=== PATIENT | male | born 1950 | race Caucasian/White ===

== ENCOUNTER 2020-07-05 07:18 | Day surgery (SDC) | payer MEDICARE, BC ==
--- NOTE | 2020-06-14 08:23 | HISTORY AND PHYSICAL ---
DATE OF SERVICE: 07/05/2020 COLONOSCOPY HISTORY AND PHYSICAL HISTORY OF PRESENT ILLNESS: The patient is a 69-year-old white male seen for followup of hypertension in the office on 06/06/2020. He had a past history of colon polyps and it had been over 8 years since his last colonoscopy. On obtaining records, he had one tubular adenoma removed from the proximal ascending colon with mild diverticular disease confined to the sigmoid colon. He states that he has been physically active and feels well, has noted no abdominal pain, no bright red blood per rectum or melena. He is not aware of any family history for colon cancer. PHYSICAL EXAMINATION: VITAL SIGNS: Weight was down 5 pounds from one year ago to 173.8, blood pressure 130/70. CHEST: Clear. CARDIOVASCULAR: Regular rate and rhythm without murmur, S3 or S4. NECK: Revealed no JVD, adenopathy or bruits. ABDOMEN: Soft, supple without mass, organomegaly or tenderness. Mild diastasis recti was noted. No bruits appreciated. No evidence for abdominal aortic aneurysm to palpation. EXTREMITIES: Reveal no cyanosis, clubbing or edema. SKIN: Evaluation revealed no suspicious nevi. IMPRESSION AND PLAN: 1. Hypertension, under good control. 2. Mild hyperlipidemia. LDL 157 as well as mild blood sugar elevation at 106 compatible with insulin resistance. Discussed the importance of weight loss, portion control. PSA remains low at 0.088. Remainder of his chemistry panel was normal including liver function studies. 3. The patient is set up for screening colonoscopy on 07/05. Prep instructions with Suprep kit were given and questions were answered. Job ID: [id number] DocumentID: [id number] Dictated Date: 06/06/2020 19:10:54 District Supervisor Date: 06/06/2020 19:25:41 Dictated By: ANNAMARIE CAREY MD
[~2020-07-05] VITALS: Ht 172.7 cm; Wt 76.8 kg
[2020-07-05] VITALS (11 sets, daily range): BP systolic 120–162; BP diastolic 65–98
[~2020-07-05 07:18] MED LIST: ATR20T PO; ENAL20TA PO; HYDR12.56 PO
[2020-07-05] MEDS ORDERED: D5 LR IV SOLUTION 1,000 ML IV ONE (07:19)
[2020-07-05] MEDS ORDERED: D5 LR IV SOLUTION 1,000 ML IV STA (07:50)
[2020-07-05] MEDS ORDERED: fentaNYL INJECTION 100 MCG/2 ML AMP IVP ONE (08:00)
[2020-07-05] MEDS ORDERED: MIDAZOLAM 5 MG/5 ML (VERSED) VIAL IV PRN (08:00)
[2020-07-05] MEDS ORDERED: LIDOCAINE JELLY 2% 6 ML SYRINGE MM PRN (08:00)
[2020-07-05] MEDS ORDERED: LIDOCAINE JELLY 2% 6 ML SYRINGE ONE (08:13)
[2020-07-05] MEDS ORDERED: fentaNYL INJECTION 100 MCG/2 ML AMP ONE (08:13)
[2020-07-05] MEDS ORDERED: MIDAZOLAM 5 MG/5 ML (VERSED) VIAL ONE (08:14)
--- NOTE | 2020-07-05 09:31 | Pre-Op Note & Conscious Sedat ---
Pre-Operative Progress Note H&P Reviewed The H&P was reviewed, patient examined and no changes noted. Date H&P Reviewed: Jul 05, 2020 Time H&P Reviewed: 07:55 Conscious Sedation Pre-Proced ASA Score 2 For ASA 3 and 4: Consider anesthesia and medical clearance. Also, for patients with a history of failed moderate sedation consider anesthesia. Airway Lungs Heart ASA score ASA 1: a normal healthy patient ASA 2: a patient with a mild systemic disease (mid diabetes, controlled hypertension, obesity ASA 3: a patient with a severe systemic disease that limits activity (angina, COPD, prior Myocardial infarction) ASA 4: a patient with an incapacitating disease that is a constant threat to life (CHF, renal failure) ASA 5: a moribund patient not expected to survive 24 hrs. (ruptured aneurysm) ASA 6: a declared brain- patient whose organs are being harvested. For emergent operations, add the letter E after the classification Mallampati Classification Grade 2 Sedation Plan Analgesia, Amnesia, Plan communicated to team members, Discussed options with patient/fam, Discussed risks with patient/fam The patient is an appropriate candidate to undergo the planned procedure, sedation, and anesthesia. The patient immediately re-assessed prior to indication. ANNAMARIE CAREY MD Jul 05, 2020 09:31
--- NOTE | 2020-07-05 17:14 | OPERATIVE REPORT ---
DATE OF SERVICE: COLONOSCOPY SUMMARY INDICATION FOR THE PROCEDURE: Screening colonoscopy. DESCRIPTION OF PROCEDURE: The patient was placed in the left lateral decubitus position. Prior to undergoing colonoscopy, digital rectal evaluation was performed. Anal sphincter tone was normal and the perianal reflexes intact. Prostate is anodular, nontender and unremarkable to digital inspection. The colonoscope was then inserted into the rectum and under direct visualization advanced to cecum. The cecum was identified by the identification of the ileocecal valve and the cecal strap. Photographic documentation was obtained. Careful inspection was made as the colonoscope was withdrawn. The patient tolerated the procedure well and the quality of prep was good. FINDINGS: There was no evidence for internal or external hemorrhoids and the rectum was unremarkable. A moderate number of small to medium size sigmoid diverticulum were present with haustral hypertrophy. No evidence for acute diverticulitis was noted and no evidence for neoplasia was identified. The descending colon, splenic flexure, transverse colon, hepatic flexure, ascending colon and cecum were unremarkable. ASSESSMENT: Moderate diverticular disease confined to the sigmoid colon was present without evidence for diverticulitis. This was an otherwise normal colonoscopy to the cecum with unremarkable digital evaluation of the prostate. Considering the patient's age, it is questionable as to whether or not future screening colonoscopy will be recommended. Job ID: [id number] DocumentID: [id number] Dictated Date: 07/05/2020 09:57:46 Paediatrician Date: 07/05/2020 17:13:18 Dictated By: ANNAMARIE CAREY MD
== END 2020-07-05 09:30 | disposition home or self-care (01) ==
LOC: ENDO 07:18
PROVIDERS: ATTEND Internal Medicine
DX: Z12.11 Encounter for screening for malignant neoplasm of colon (principal); K57.30 Diverticulosis of large intestine without perforation or abscess without bleeding; I10 Essential (primary) hypertension; Z86.010 Personal history of colon polyps; E78.5 Hyperlipidemia, unspecified